=== PATIENT | female | born 1935 | race American Indian/Alaskan Native ===

== ENCOUNTER 2016-11-17 18:48 | Inpatient (IN) | payer MEDICARE ==
[2016-11-17 19:04] LABS: Basophils % (Auto) 0.9 % (0.0-1.8); Eosinophils % (Auto) 1.3 % (0.0-4.3); Hematocrit 36.8 % (30.3-42.9); Hemoglobin 11.9 gm/dl (10.1-14.3); Mean Corpuscular HGB Conc 32 % (30-34); Mean Corpuscular Hemoglobin 27 pg (28-32); Mean Corpuscular Volume 84 fl (79-97); Platelet Count 282 K/mm3 (140-440); Red Blood Count 4.37 M/mm3 (3.65-5.03); White Blood Count 6.6 K/mm3 (4.5-11.0)
[2016-11-17 19:10] LABS: INR 1.03 (0.87-1.13)
[2016-11-17] MEDS ORDERED: ZOFRAN IV ONE (19:10)
[2016-11-17 19:11] LABS: Partial Thromboplastin Time 25.9 Sec. (24.2-36.6)
[2016-11-17 19:14] LABS: Anion Gap 18 mmol/L; Blood Urea Nitrogen 12 mg/dL (7-17); Calcium 9.7 mg/dL (8.4-10.2); Carbon Dioxide 24 mmol/L (22-30); Chloride 101.3 mmol/L (98-107); Glucose 134 mg/dL (65-100); Potassium 3.7 mmol/L (3.6-5.0); Sodium 140 mmol/L (137-145)
[2016-11-17] MEDS ORDERED: ZOFRAN ONE (19:19)
--- NOTE | 2016-11-17 19:19 | Cat Scan Report ---
FINAL REPORT EXAM: CT HEAD/BRAIN WO CON HISTORY: neuro deficits \T\lt; 6hrs or sx present upon awakening TECHNIQUE: Noncontrast CT axial images of the brain. PRIORS: None. FINDINGS: No parenchymal mass, hemorrhage, midline shift or hydrocephalus. No evidence of acute cortical infarct. No abnormal, extra-axial fluid or air collection. Patchy low density in the periventricular and subcortical white matter is nonspecific, but may relate to chronic small vessel ischemic change. Focal encephalomalacia in the left inferior parieto-occipital region suggesting old ischemic change or infarct. Age related volume loss. Osseous calvarium grossly intact. Partial opacification of bilateral mastoid air complexes. IMPRESSION: 1. No acute intracranial findings. 2. Chronic ischemic and atrophic changes.
[2016-11-17] MEDS ORDERED: NACL 0.9% IV ONE (19:33)
[2016-11-17] MEDS ORDERED: ACTIVASE IV ONE ×2 (19:33)
--- NOTE | 2016-11-17 20:08 | Admit Criteria Form ---
Admission Criteria Documentation: STROKE: ISCHEMIC Clinical Indications for Admission to Inpatient Care (Place 'X' for any and all applicable criteria): Admission is indicated for ANY ONE of the following(1)(2)(3)(4): [X ]I. Acute stroke Extended stay beyond goal length of stay may be needed for(1)(2) [ ]a) Major deficit or clinical deterioration [ ]b) Hospital-acquired infection (eg, urinary tract infection, pneumonia) [ ]c) Embolic cause of stroke [ ]d) Venous thromboembolism(9) [ ]e) Seizures [ ]f) Bleeding (eg, cerebral) [ ]g) Increased intracranial pressure [ ]h) Comorbidities [ ]i) Surgical intervention The original [facility] content created by [employer] has been revised. The portions of the content which have been revised are identified through the use of italic text or in bold, and [facility] has neither reviewed nor approved the modified material. All other unmodified content is copyright [facility]. Please see references footnoted in the original [facility] edition 2016 Admission Criteria Met: Yes
--- NOTE | 2016-11-17 20:08 | Emergency Department Report ---
HPI - General Chief Complaint: Neuro Symptoms/Deficit Time Seen by Provider: 11/17/16 18:50 - HPI HPI: The patient is a 81-year-old female who presents for evaluation of strokelike symptoms. The patient arrives with her son who provides history present illness. He reports that at 6 PM approximately 30-45 minutes prior to arrival the patient developed sudden onset of right-sided weakness and loss of speech. He states that she was eating or taking when she suddenly became agitated and exhibited coordination deficit on the right side. She subsequently lost the ability to ambulate and her speech became incomprehensible. Per EMS on arrival to scene the patient was found to have complete loss of speech, or facial drooping, and right upper and lower extremity weakness. ED Review of Systems ROS: Stated complaint: POSS STROKE Other details as noted in HPI Comment: Unobtainable due to pts medical conditions (non-communicable) Physical Exam - Physical Exam Physical Exam: General: well-nourished, well-developed, no acute distress Head: Normocephalic, atraumatic Eyes: normal sclera, EOMI, PERRL ENT: Mucous membranes are pink and moist Neck: trachea midline, neck supple, No neck stiffness, no cervical adenopathy Respiratory: Breath sounds equal bilaterally, no wheezing, rales, or rhonchi Cardio: S1 and S2 present, no murmurs, rubs, gallops, capillary refill is brisk Abdomen: Normoactive bowel sounds, soft abdomen, no rigidity, no guarding or rebound tenderness Musc: No pitting edema Skin: No rash Neuro: Alert, unable to follow commands, right-sided facial drooping present, gag reflex intact, protecting airway, right upper and lower extremity motor deficit present, no appreciable sensation deficit, reflexes are 2+, unable to assess coordination Psych: Normal affect ED Course - Reevaluation(s) Reevaluation #1: 11/17/161947 The on-call neurologist Dr. Dawn is consulted. He evaluated the patient via telerobot. He agreed with recommendation to provide the patient TPA. The patient's daughter and grandson were consented regarding the benefits and risks of TPA. Expressed understanding and agreement with proceeding with administration. The patient was administered TPA within 60 minute window. ED Medical Decision Making - Lab Data Result diagrams: 11/17/16 17:00 11/17/16 17:00 - Medical Decision Making The patient was seen and examined by myself. The patient is placed on a staple shear operator and continuous pulse ox. On initial evaluation, the patient was found to be in no distress. Evaluation orders were placed. CT scan the head is negative for hemorrhagic stroke or other emergent acute intracranial disease process. The on-call neurologist consult. He evaluated the patient recommended TPA administration. The patient is side and mother were consulted regarding benefits and risks of TPA administration. They agreed. The patient is administered TPA bolus and infusion. During ED course the patient developed agitation. Multiple bedside assessments were performed to reassess patient neurologic status and potential complications secondary to TPA administration. CT angiogram of the head and neck is negative for vascular blockage. The on-call hospitalist service was contacted. They agreed to admit the patient for further treatment and close monitoring. The ED admit order was placed. The patient was admitted in guarded condition. Critical Care Time: Yes Critical care time in (mins) excluding proc time.: 35 Critical care attestation.: Due to the critical nature of this patients presentation, which necessitated multiple bedside assessments, manipulation and supportive measures to prevent further life threatening deterioration, I would like to bill for a total of 35 minutes of critical care time. This was exclusive of any separately billable procedures. Critical Care Time: 35 ED Disposition Clinical Impression: Acute ischemic stroke, Expressive aphasia Disposition: OP ADMITTED IP TO THIS HOSP Is pt being admited?: Yes Does the pt Need Aspirin: Yes Condition: Critical Referrals: PRIMARY CARE, [Primary Care Provider] - 3-5 Days Forms: Accompanied Note Time of Disposition: 20:02
[2016-11-17] MEDS ORDERED: NACL ONE (20:30)
[2016-11-17] MEDS ORDERED: ATIVAN IV ONE (21:10)
[2016-11-17] MEDS ORDERED: ATIVAN ONE (21:15)
--- NOTE | 2016-11-17 23:19 | Cat Scan Report ---
FINAL REPORT PROCEDURE: CT ANGIO NECK TECHNIQUE: Computerized tomographic angiography of the neck was performed after the IV injection of iodinated nonionic contrast including image processing. The image data was postprocessed using 2-dimensional multiplanar reformatted (MPR) and 3-dimensional (MIP and/or volume rendered) techniques. HISTORY: right sided weakness, expressive aphasia COMPARISON: No prior studies are available for comparison. Note: Assessment of carotid artery stenosis is based on measurement of the distal internal carotid artery diameter as the denominator for stenosis calculations and the [place] Symptomatic Carotid Endarterectomy Trial (NASCET) stenosis criteria . CPT 3100F FINDINGS: Sinuses: Normal . Non vascular cervical structures: There is a nodular density most likely a cyst within the right thyroid gland.. Aortic arch: There is tortuosity of the origin of the right innominate and right carotid artery with tortuosity of the vasculature in the anterior neck region. A portion of the right carotid artery traverses anterior to the right thyroid gland area. Right carotid artery: No evident plaque formation or stenosis.. Left carotid artery: No evident plaque formation or stenosis.. Vertebral arteries: Normal . IMPRESSION: No evidence of significant stenosis or plaque formation within the carotid arterial structures.
--- NOTE | 2016-11-17 23:21 | History and Physical Report ---
History of Present Illness Date of examination: 11/17/16 Date of admission: 10/20/16 Chief complaint: Right sided weakness History of present illness: 81-year-old -[place] female with past medical history significant for dementia was brought to the emergency department by EMS after the patient became agitated, disoriented, right-sided weakness, drooling of saliva. Her grandson was in the room with her and said no loss of consciousness or abnormal body movement. She was attended immediately to the ED and CT head was done and didn't show any acute intracranial bleeding and she was treated with TPA and admitted to the ICU for follow-up. Past History Past Medical History: other (dementia with agitation) Past Surgical History: No surgical history Social history: lives with family, full code. denies: smoking, alcohol abuse, prescription drug abuse, IV drug use Family history: denies: stroke Medications and Allergies Allergies Allergy/AdvReac Type Severity Reaction Status Date / Time No Known Allergies Allergy Unverified 11/17/16 18:54 Home Medications Medication Instructions Recorded Confirmed Last Taken Type Memantine HCl 10 mg PO BID 11/18/16 11/18/16 Unknown History risperiDONE [RisperDAL] 0.25 mg PO BID 11/18/16 11/18/16 Unknown History Review of Systems ROS unobtainable: due to mental status (didn't get much review of systems because the patient has dementia) Ears, nose, mouth and throat: no ear discharge Cardiovascular: no chest pain, no orthopnea, no palpitations Respiratory: cough Gastrointestinal: no abdominal pain Neurological: no head injury, no seizures Psychiatric: memory loss, no anxiety Exam - Physical Exam Narrative exam: Not in cardiopulmonary distress. The patient appeared well nourished and normally developed. Vital signs as documented. Head exam is unremarkable. No scleral icterus . Neck is without jugular venous distension, thyromegaly, or carotid bruits. Lungs are clear to auscultation. Cardiac exam reveals regular rate and Rhythm. First and second heart sounds normal. No murmurs, rubs or gallops. Abdominal exam reveals normal bowel sounds, no masses, no organomegaly and no aortic enlargement. Extremities are nonedematous and both femoral and pedal pulses are normal. PHOTO RETOUCHER: Alert but not oriented. Right-sided hemiparesis. - Constitutional Vitals: Temp Pulse Resp BP Pulse Ox 66 13 135/78 100 11/17/16 23:10 11/17/16 23:10 11/17/16 23:10 11/17/16 23:10 Results - Labs CBC & Chem 7: 11/17/16 17:00 11/17/16 17:00 Labs: Laboratory Last Values WBC 6.6 K/mm3 (4.5-11.0) 11/17/16 17:00 RBC 4.37 M/mm3 (3.65-5.03) 11/17/16 17:00 Hgb 11.9 gm/dl (10.1-14.3) 11/17/16 17:00 Hct 36.8 % (30.3-42.9) 11/17/16 17:00 MCV 84 fl (79-97) 11/17/16 17:00 MCH 27 pg (28-32) L 11/17/16 17:00 MCHC 32 % (30-34) 11/17/16 17:00 RDW 14.0 % (13.2-15.2) 11/17/16 17:00 Plt Count 282 K/mm3 (140-440) 11/17/16 17:00 Lymph % (Auto) 42.9 % (13.4-35.0) H 11/17/16 17:00 [place] % (Auto) 8.4 % (0.0-7.3) H 11/17/16 17:00 Eos % (Auto) 1.3 % (0.0-4.3) 11/17/16 17:00 Baso % (Auto) 0.9 % (0.0-1.8) 11/17/16 17:00 Lymph # 2.8 K/mm3 (1.2-5.4) 11/17/16 17:00 [place] # 0.6 K/mm3 (0.0-0.8) 11/17/16 17:00 Eos # 0.1 K/mm3 (0.0-0.4) 11/17/16 17:00 Baso # 0.1 K/mm3 (0.0-0.1) 11/17/16 17:00 Seg Neutrophils % 46.5 % (40.0-70.0) 11/17/16 17:00 Seg Neutrophils # 3.1 K/mm3 (1.8-7.7) 11/17/16 17:00 PT 13.4 Sec. (12.2-14.9) 11/17/16 17:00 INR 1.03 (0.87-1.13) 11/17/16 17:00 APTT 25.9 Sec. (24.2-36.6) 11/17/16 17:00 Thrombin Time 15.9 Sec. (15.1-19.6) 11/17/16 17:00 Sodium 140 mmol/L (137-145) 11/17/16 17:00 Potassium 3.7 mmol/L (3.6-5.0) 11/17/16 17:00 Chloride 101.3 mmol/L (98-107) 11/17/16 17:00 Carbon Dioxide 24 mmol/L (22-30) 11/17/16 17:00 Anion Gap 18 mmol/L 11/17/16 17:00 BUN 12 mg/dL (7-17) 11/17/16 17:00 Creatinine 0.6 mg/dL (0.7-1.2) L 11/17/16 17:00 Estimated GFR > 60 ml/min 11/17/16 17:00 BUN/Creatinine Ratio 20.00 % 11/17/16 17:00 Glucose 134 mg/dL (65-100) H 11/17/16 17:00 Lactic Acid 1.4 mmol/L (0.7-2.0) 11/17/16 19:43 Calcium 9.7 mg/dL (8.4-10.2) 11/17/16 17:00 Troponin T < 0.010 ng/mL (0.00-0.029) 11/17/16 17:00 Plasma/Serum Alcohol < 0.01 gm% (0-0.07) 11/17/16 18:50 Assessment and Plan Assessment and plan: Right-sided hemiparesis secondary to acute CVA - Patient was treated with TPA - teleneurology was consulted - Will consult neurology - We will hold ASA,and heparin products for the next 24 hrs - CT head negative for intracranial bleeding, CTA head and neck negative - Echo and MRI pending - NPO - Speech and swallow evaluation, PT consult Dementia - We will start her medications after swallow evaluations Disposition - Admit to ICU Advance Directives: Yes VTE prophylaxis?: Mechanical Contraindication Mechanical VTE Prophylaxis: Treatment Not Indicated Plan of care discussed with patient/family: Yes
--- NOTE | 2016-11-17 23:25 | Cat Scan Report ---
FINAL REPORT PROCEDURE: CT ANGIO HEAD TECHNIQUE: Computerized tomographic angiography of the head was performed after the IV injection of iodinated nonionic contrast including image processing. The image data was postprocessed using 2-dimensional multiplanar reformatted (MPR) and 3-dimensional (MIP and/or volume rendered) techniques. HISTORY: right sided weakness, expressive aphasia COMPARISON: Head CT of the same date FINDINGS: Cerebrum: No evidence of hemorrhage, acute ischemia or mass. Cerebellum: No evidence of hemorrhage, acute ischemia or mass. Mild atrophy and periventricular deep white matter changes are noted. Old area encephalomalacia in the left posterior occipital parietal lobe. Subarachnoid spaces and ventricles: Normal. Intracranial vessels: Carotid siphon: Normal. Anterior cerebral: Normal. Middle cerebral: Normal. Posterior cerebral:Normal. Vertebral arteries including basilar: Normal. Aneurysms: None. Dural sinuses: Normal. IMPRESSION: Normal evaluation of the vasculature. Mild atrophy and periventricular deep white matter changes are noted. Old area encephalomalacia in the left posterior occipital parietal lobe region, old infarction in this area is suspected.
[2016-11-18] MEDS ORDERED: NACL 0.9% 1000 ML 1,000 ML IV SCH (02:00)
--- NOTE | 2016-11-18 09:44 | Progress Note ---
Assessment and Plan Assessment and plan: 81-year-old -[place] female with past medical history significant for dementia was brought to the emergency department by EMS after the patient became agitated, disoriented, right-sided weakness, drooling of saliva. In the ER CT head was done and didn't show any acute intracranial bleeding and she was treated with TPA and admitted with stroke protocol. Right-sided hemiparesis secondary to acute CVA - Patient was treated with TPA - tele neurology was consulted on admission - We'll follow neurology recommendation - We will hold ASA,and heparin products for the 24 hrs post TPA - CT head negative for intracranial bleeding, CTA head and neck negative - Echo and MRI pending - NPO now - Speech and swallow evaluation, PT consult Dementia - We will start her medications after swallow evaluations GI and DVT prophylaxis -Continue on Protonix and SCD - Lovenox from tomorrow History Interval history: Patient seen and examined. Medical records and medication list reviewed. No acute event overnight noted by the RN. Patient appears to be sleepy. Discussed plan of care at bedside with patient's daughter. Hospitalist Physical - Physical exam Narrative exam: GENERAL: Elderly female lying on bed appeared to be in no discomfort. She appears to be very drowsy but will awake up verbal commend. HEENT: Normocephalic. Atraumatic. No conjunctival congestion or icterus. Patient has moist mucous membranes. NECK: Supple. Trachea midline. CHEST/LUNGS: Clear to auscultated bilaterally, breathing nonlabored. No wheezes crackles or rhonchi. HEART/CARDIOVASCULAR: Regular in rate and rhythm. S1 and S2 positive. ABDOMEN: Abdomen is soft, nontender. Patient has normal bowel sounds. SKIN: There is no rash. Warm and dry. NEURO: Right-sided weakness. Follows minor command. MUSCULOSKELETAL: No joint effusion or tenderness. EXTRIMITY: No edema, no cyanosis or clubbing. PSYCH: Unable to assess. - Constitutional Vitals: Temp Pulse Resp BP Pulse Ox 97.5 F L 60 14 92/64 97 11/18/16 09:28 11/18/16 08:00 11/18/16 08:00 11/18/16 08:00 11/18/16 08:00 Results - Labs CBC & Chem 7: 11/17/16 17:00 11/17/16 17:00 Labs: Laboratory Last Values WBC 6.6 K/mm3 (4.5-11.0) 11/17/16 17:00 RBC 4.37 M/mm3 (3.65-5.03) 11/17/16 17:00 Hgb 11.9 gm/dl (10.1-14.3) 11/17/16 17:00 Hct 36.8 % (30.3-42.9) 11/17/16 17:00 MCV 84 fl (79-97) 11/17/16 17:00 MCH 27 pg (28-32) L 11/17/16 17:00 MCHC 32 % (30-34) 11/17/16 17:00 RDW 14.0 % (13.2-15.2) 11/17/16:00 Plt Count 282 K/mm3 (140-440) 11/17/16 17:00 Lymph % (Auto) 42.9 % (13.4-35.0) H 11/17/16 17:00 [place] % (Auto) 8.4 % (0.0-7.3) H 11/17/16 17:00 Eos % (Auto) 1.3 % (0.0-4.3) 11/17/16 17:00 Baso % (Auto) 0.9 % (0.0-1.8) 11/17/16 17:00 Lymph # 2.8 K/mm3 (1.2-5.4) 11/17/16 17:00 [place] # 0.6 K/mm3 (0.0-0.8) 11/17/16 17:00 Eos # 0.1 K/mm3 (0.0-0.4) 11/17/16 17:00 Baso # 0.1 K/mm3 (0.0-0.1) 11/17/16 17:00 Seg Neutrophils % 46.5 % (40.0-70.0) 11/17/16 17:00 Seg Neutrophils # 3.1 K/mm3 (1.8-7.7) 11/17/16 17:00 PT 13.4 Sec. (12.2-14.9) 11/17/16 17:00 INR 1.03 (0.87-1.13) 11/17/16 17:00 APTT 25.9 Sec. (24.2-36.6) 11/17/16 17:00 Thrombin Time 15.9 Sec. (15.1-19.6) 11/17/16 17:00 Sodium 140 mmol/L (137-145) 11/17/16 17:00 Potassium 3.7 mmol/L (3.6-5.0) 11/17/16 17:00 Chloride 101.3 mmol/L (98-107) 11/17/16 17:00 Carbon Dioxide 24 mmol/L (22-30) 11/17/16 17:00 Anion Gap 18 mmol/L 11/17/16 17:00 BUN 12 mg/dL (7-17) 11/17/16 17:00 Creatinine 0.6 mg/dL (0.7-1.2) L 11/17/16 17:00 Estimated GFR > 60 ml/min 11/17/16 17:00 BUN/Creatinine Ratio 20.00 % 11/17/16 17:00 Glucose 134 mg/dL (65-100) H 11/17/16 17:00 Lactic Acid 1.4 mmol/L (0.7-2.0) 11/17/16 19:43 Calcium 9.7 mg/dL (8.4-10.2) 11/17/16 17:00 Troponin T < 0.010 ng/mL (0.00-0.029) 11/17/16 17:00 Plasma/Serum Alcohol < 0.01 gm% (0-0.07) 11/17/16 18:50 - Imaging and Cardiology CT Scan - head: report reviewed
--- NOTE | 2016-11-18 10:32 | Consultation ---
History of Present Illness Consult date: 11/18/16 Requesting physician: MO FOREMAN Reason for consult: other (Acute CVA s/p tpA) History of present illness: PULMONARY/CCM CONSULT NOTE (Full dictation # [id number]) Please see dictated notes for full details Past History Past Medical History: other (dementia with agitation) Past Surgical History: No surgical history Social history: lives with family, full code. denies: smoking, alcohol abuse, prescription drug abuse, IV drug use Family history: denies: stroke Medications and Allergies Allergies Allergy/AdvReac Type Severity Reaction Status Date / Time No Known Allergies Allergy Unverified 11/17/16 18:54 Home Medications Medication Instructions Recorded Confirmed Last Taken Type Memantine HCl 10 mg PO BID 11/18/16 11/18/16 Unknown History risperiDONE [RisperDAL] 0.25 mg PO BID 11/18/16 11/18/16 Unknown History Active Meds: Active Medications Sodium Chloride (Nacl 0.9% 1000 Ml) 1,000 mls @ 100 mls/hr IV DIRECT DONAVON Physical Examination Vital signs: Vital Signs Pulse Resp Pulse Ox 74 12 97 11/17/16 19:12 11/17/16 19:12 11/17/16 19:12 Results - Laboratory Findings CBC and BMP: 11/17/16 17:00 11/17/16 17:00 PT/INR, D-dimer PT 13.4 Sec. (12.2-14.9) 11/17/16 17:00 INR 1.03 (0.87-1.13) 11/17/16 17:00
--- NOTE | 2016-11-18 13:43 | Progress Note ---
Assessment and Plan This is an 81 YO F with acute RHP. REcommend: MRI Brain, MRA head PT/OT/ST echo and carotids Follow up CT head in 24 hours post IV tPA Blood pressure and blood glucose control as per protocol mechanical VTE prophylaxis for 24 hours post IV tPA STAT head CT for mental status changes/increased weakness Continue care for her medical issues as you are doing Thank you for the consult. Call with questions. Subjective Date of service: 11/18/16 Principal diagnosis: acute stroke Interval history: Pt seen, notes reviewed. Pt brought in as stroke alert for acute RHP. On my arrival pt is sleeping but easily aroused. Demented at baseline. Moves all extremities with noxious stimulation but moves right UE more spontaneously(has mitten). Not moving right leg much. Moves Left UE and LE with noxious stimulation very vigourously. Objective - Vital Sign Vital Signs - 12hr 11/18/16 11/18/16 11/18/16 01:41 01:51 02:00 Temperature Pulse Rate 55 L 56 L 55 L Pulse Rate [ Left Arm] Respiratory 12 14 9 L Rate Respiratory Rate [Left Arm] Blood Pressure 101/65 123/71 121/63 Blood Pressure [Left Arm] O2 Sat by Pulse 91 96 100 Oximetry O2 Sat by Pulse Oximetry [Left Arm] 11/18/16 11/18/16 11/18/16 02:11 02:21 02:30 Temperature Pulse Rate 56 L 55 L 57 L Pulse Rate [ Left Arm] Respiratory 14 11 L 9 L Rate Respiratory Rate [Left Arm] Blood Pressure 121/63 139/71 109/63 Blood Pressure [Left Arm] O2 Sat by Pulse 91 99 99 Oximetry O2 Sat by Pulse Oximetry [Left Arm] 11/18/16 11/18/16 11/18/16 02:41 02:51 03:00 Temperature Pulse Rate 66 60 Pulse Rate [ Left Arm] Respiratory 14 14 11 L Rate Respiratory Rate [Left Arm] Blood Pressure 109/63 138/75 139/67 Blood Pressure [Left Arm] O2 Sat by Pulse 96 97 100 Oximetry O2 Sat by Pulse Oximetry [Left Arm] 11/18/16 11/18/16 11/18/16 03:11 03:21 03:31 Temperature Pulse Rate Pulse Rate [ Left Arm] Respiratory 16 14 14 Rate Respiratory Rate [Left Arm] Blood Pressure 139/67 132/58 111/57 Blood Pressure [Left Arm] O2 Sat by Pulse 95 96 96 Oximetry O2 Sat by Pulse Oximetry [Left Arm] 11/18/16 11/18/16 11/18/16 03:41 03:51 04:00 Temperature Pulse Rate 54 L Pulse Rate [ Left Arm] Respiratory 13 13 14 Rate Respiratory Rate [Left Arm] Blood Pressure 111/57 119/75 106/57 Blood Pressure [Left Arm] O2 Sat by Pulse 98 99 95 Oximetry O2 Sat by Pulse Oximetry [Left Arm] 11/18/16 11/18/16 11/18/16 04:11 04:21 04:30 Temperature Pulse Rate 61 54 L 52 L Pulse Rate [ Left Arm] Respiratory 13 15 14 Rate Respiratory Rate [Left Arm] Blood Pressure 106/57 106/58 93/55 Blood Pressure [Left Arm] O2 Sat by Pulse 92 96 96 Oximetry O2 Sat by Pulse Oximetry [Left Arm] 11/18/16 11/18/16 11/18/16 04:41 04:51 05:00 Temperature Pulse Rate 51 L 63 53 L Pulse Rate [ Left Arm] Respiratory 12 12 14 Rate Respiratory Rate [Left Arm] Blood Pressure 124/67 124/67 112/57 Blood Pressure [Left Arm] O2 Sat by Pulse 98 86 62 L Oximetry O2 Sat by Pulse Oximetry [Left Arm] 11/18/16 11/18/16 11/18/16 05:11 05:21 05:30 Temperature Pulse Rate 52 L 50 L 54 L Pulse Rate [ Left Arm] Respiratory 13 14 13 Rate Respiratory Rate [Left Arm] Blood Pressure 112/57 112/57 95/62 Blood Pressure [Left Arm] O2 Sat by Pulse 96 95 97 Oximetry O2 Sat by Pulse Oximetry [Left Arm] 11/18/16 11/18/16 11/18/16 05:41 05:51 06:01 Temperature Pulse Rate 57 L 51 L 51 L Pulse Rate [ Left Arm] Respiratory 13 13 13 Rate Respiratory Rate [Left Arm] Blood Pressure 95/62 95/62 108/67 Blood Pressure [Left Arm] O2 Sat by Pulse 97 93 89 Oximetry O2 Sat by Pulse Oximetry [Left Arm] 11/18/16 11/18/16 11/18/16 06:11 06:21 06:30 Temperature Pulse Rate 50 L 50 L 69 Pulse Rate [ Left Arm] Respiratory 14 11 L 14 Rate Respiratory Rate [Left Arm] Blood Pressure 108/67 108/67 111/81 Blood Pressure [Left Arm] O2 Sat by Pulse 97 99 84 Oximetry O2 Sat by Pulse Oximetry [Left Arm] 11/18/16 11/18/16 11/18/16 06:41 06:51 07:00 Temperature Pulse Rate 51 L 54 L 52 L Pulse Rate [ 60 Left Arm] Respiratory 12 13 11 L Rate Respiratory 14 Rate [Left Arm] Blood Pressure 111/81 111/81 107/74 Blood Pressure 107/74 [Left Arm] O2 Sat by Pulse 99 96 99 Oximetry O2 Sat by Pulse 98 Oximetry [Left Arm] 11/18/16 11/18/16 11/18/16 08:00 09:28 12:00 Temperature 97.5 F L 97.4 F L Pulse Rate Pulse Rate [ 60 Left Arm] Respiratory Rate Respiratory 14 Rate [Left Arm] Blood Pressure Blood Pressure 92/64 [Left Arm] O2 Sat by Pulse Oximetry O2 Sat by Pulse 97 Oximetry [Left Arm] - EENT EENT: PERRL - Respiratory Respiratory: chest non-tender, lungs clear - Cardiovascular Cardiovascular: regular rate - Neurologic Cranial nerve examination: PERRL, EOMI, V1/V2/V3 grossly intact, tongue midline Detailed motor examination: other (left side appears at baseline. Will move RUE. Not much movement RLE.) Detailed sensory examination: light touch, pain - Laboratory Findings CBC and BMP: 11/17/16 17:00 11/17/16 17:00 - Diagnostic Findings Additional findings: CT head no hemorrhage MRI Brain and follow CT head (24 hrs post IV TPA) pending
[2016-11-18 14:26] LABS: Hematocrit 37.6 % (30.3-42.9)
[2016-11-18 14:32] LABS: INR 1.09 (0.87-1.13)
[2016-11-18 14:33] LABS: Partial Thromboplastin Time 28.5 Sec. (24.2-36.6)
[2016-11-18] MEDS: NAMENDA XR PO SCH (21:30)
[2016-11-18] MEDS: ASPIRIN PO SCH (21:31)
[2016-11-18] MEDS: PEPCID IV SCH (21:31)
[2016-11-18] MEDS: RisperDAL PO SCH (21:32)
[2016-11-18] MEDS ORDERED: MEMANTINE HCL 10 MG PO SCH (22:00)
--- NOTE | 2016-11-18 23:03 | Cat Scan Report ---
FINAL REPORT PROCEDURE: CT HEAD/BRAIN WO CON TECHNIQUE: Computerized tomography of the head was performed without contrast material. HISTORY: post IV tPA 24 hr follow up COMPARISON: 11/17/2016 FINDINGS: Skull and scalp: Normal. Paranasal sinuses: Normal. Ventricles and subarachnoid spaces: There is moderate central and cortical atrophy. There is no hydrocephalus or asymmetry.. Cerebrum: No evidence of hemorrhage, acute infarction or mass. 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 There is chronic deep white matter ischemic gliosis. Cerebellum and brainstem: No evidence of hemorrhage, acute infarction or mass. Vasculature: Normal. Comments: None. 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 No acute abnormality is seen. There is no hemorrhage.
--- NOTE | 2016-11-19 02:13 | Consultation ---
CONSULTING PHYSICIAN: Sergio Newberry MD, hospitalist. REASON FOR CONSULTATION: Acute CVA, status post TPA, need for ICU admission. CHIEF COMPLAINT AND HISTORY OF PRESENT ILLNESS: The patient is an 81-year-old female who apparently had a past medical history that included high blood pressure, lives at home, her daughter in the room, could not give much of the history. According to her son, who stays with her mother, brought her in, as mentioned in that about 30-45 minutes prior to her arrival, she developed sudden onset right-sided weakness and aphasia. She reportedly was sitting in the kitchen when she suddenly became agitated and he noticed the deficits on the right side. She was evaluated in the Emergency Room. She had some facial drooping and right upper and lower extremity weakness. She was administered TPA after consent had been given, and post-TPA, she was admitted to the Intensive Care Unit. A CT scan of the head had been done was negative for hemorrhagic stroke or any contraindication to administration of the product. When I stopped by to see her, she was lying in bed, still appeared to be a little bit confused or aphasic, was answering yes to all questions. Daughter in her room says she is a little bit more cognitively better at baseline. They denied nausea, vomiting, or overt aspiration. They denied any history of tobacco use or abuse or whatsoever, they denied any trauma. That really is as much of the history of presentation as I have. PAST MEDICAL HISTORY: Seems there is a history of hypertension and also history of dementia. PAST SURGICAL HISTORY: Denied. MEDICATIONS: She was on at the time I stopped by to see her, according to the medication administration record, actually she was not on any medication at the time. She was on oxygen about 2 liters per nasal cannula. ALLERGIES: No known drug allergies. DIET: Well-built lady on the petite side. No significant weight loss or gain in the preceding few weeks to months per family. FAMILY AND SOCIAL HISTORY: Lives in the community with her daughter. No alcohol, tobacco, or illicit drug use or abuse. REVIEW OF SYSTEMS: Unobtainable secondary to the patient's medical and mental condition since she has been here, no gross hematochezia or melena, no gross hematuria, no hematemesis, no hemoptysis, no witnessed seizures, and no other bleeding ____ review of systems otherwise unobtainable. PHYSICAL EXAMINATION: VITAL SIGNS: At initial presentation in the emergency room, she was afebrile, temperature 98.5, pulse was 74, respiratory rate was 12, blood pressure 148/69, oxygen sats 97%, inspired oxygen concentration was not recorded. HEAD, EYES, EARS, NOSE, AND THROAT: Pupils are equal, round, about 2-3 mm, reactive to light. Extraocular muscle movements could not be assessed. Grossly, there were no palpable lymph nodes in the supraclavicular or submandibular lymph node chains. Oropharynx appeared to be a Mallampati #2 oropharynx when she did open it. LUNGS: Auscultation of both lung thrasher unremarkable. Lungs were clear bilaterally. HEART: Heart sounds 1 and 2 were heard. There were regular rate and rhythm at the time of my evaluation. ABDOMEN: Soft. Bowel sounds are positive. Did not appear tender. EXTREMITIES: Without overt digital clubbing, cyanosis, or pedal edema. She moved all extremities when I saw her, it was difficult to get her to follow commands to better evaluate the strength. LABORATORY DATA: From my review are as follows: White count 6600 on admission with hemoglobin of 11.9, hematocrit of 36.8, and platelets of 282. INR 1.03. Serum sodium was 140, potassium 3.7, chloride 101, bicarbonate 24, BUN 12, creatinine 0.6, and glucose of 134. Lactic acid level was within normal limits. Troponin within normal limits. Blood alcohol level within normal limits. ASSESSMENT AND PLAN: We have an elderly lady, status post TPA protocol for stroke. I should mention that CT of the brain showed no acute intracranial findings, some chronic atrophic changes. She had a CTA of the neck and of the head. CTA of the neck, no significant stenosis or plaque formation. CT of the head, no acute findings, normal evaluation of the vasculature. From a respiratory standpoint, we will keep her on supplemental oxygen as needed, keep sats greater than or equal to about 90-92%. Aspiration precautions will be maintained and hopefully, she does not decompensate to where she needs support, but if that is needed acutely bilevel positive airway pressure ventilation therapy will be offered for ventilatory support and oxygenation. From a cardiovascular standpoint, hemodynamically stable. Secondary stroke prevention strategies, blood pressure control, aspirin will soon be instituted, and we will follow her clinically. No obvious arrhythmia. From a GI and nutritional standpoint, oral nutrition will be the feeding modality of choice. She will need a swallow evaluation prior to that, she will be placed on GI prophylaxis and aspiration precautions will be maintained. From a renal standpoint, no major electrolyte abnormalities. Inputs and outputs will be monitored. Electrolytes will be monitored and corrected as necessary. From infectious disease standpoint, no signs and symptoms of overwhelming sepsis, no acute indication for anti-infectives. We will follow her clinically. From a BUNDLE PERSON standpoint, Neurology evaluation is pending. She will be observed with TPA protocol for now. As mentioned secondary stroke prevention procedures will be put in place and I will defer to the neurologist for further interventions. From a hematologic standpoint, she will be placed on DVT prophylaxis and we will follow her H and H intermittently. From a general and hospital healthcare maintenance standpoint, she is going to be put on GI and DVT prophylaxis. Flu and pneumonia vaccination will be per protocol. Thank you very much for the consult Dr. Newberry. We will follow along. We will make further recommendations as picture progresses/becomes clearer. At this time, I spent about 30-35 minutes of critical care time without overlap. I have taken the time to explain the care plan to her daughter and she is in agreement. She is critically ill. Hopefully, does not deteriorate further and will be observed in the Intensive Care Unit for now. JOB# [id number] JENNIFER/JIM
[2016-11-19] MEDS: PEPCID IV SCH (09:53)
[2016-11-19] MEDS: ASPIRIN PO SCH (09:53)
[2016-11-19] MEDS: LOVENOX SUB-Q SCH (09:54)
[2016-11-19] MEDS: RisperDAL PO SCH ×2 (09:54→22:35)
--- NOTE | 2016-11-19 11:32 | Progress Note ---
Assessment and Plan - Patient Problems (1) Hypoxemia Current Visit: Yes Status: Acute Plan to address problem: - resolved - prn oxygen therapy (2) Acute ischemic stroke Current Visit: Yes Status: Acute Plan to address problem: - secondary prevention startegies - seen by neurology - fall precautions - BP control - aspiration precautions (3) Expressive aphasia Current Visit: Yes Status: Acute Plan to address problem: - per neurology (4) Discharge planning issues Current Visit: Yes Status: Acute Plan to address problem: - can transfer to medical floor - ST evaluation before starting diet Subjective Date of service: 11/19/16 Principal diagnosis: acute stroke Interval history: Seen and examined at bedside; 24 hour events reviewed; nursing and respiratory care staff consulted; no adverse overnight events reported to me; resting peacefully in bed; no acute SOB; still very confused and unclear if at baseline or worse Objective Vital Signs - 12hr 11/18/16 11/18/16 11/18/16 23:35 23:41 23:51 Temperature Pulse Rate 58 L 51 L Pulse Rate [ From Monitor] Pulse Rate [ Left Radial] Respiratory 11 L 13 13 Rate Blood Pressure 128/73 128/73 128/73 O2 Sat by Pulse 99 100 99 Oximetry 11/19/16 11/19/16 11/19/16 00:00 00:01 00:11 Temperature 98.0 F Pulse Rate 52 L 62 Pulse Rate [ 60 From Monitor] Pulse Rate [ 60 Left Radial] Respiratory 14 12 12 Rate Blood Pressure 104/52 104/52 O2 Sat by Pulse 100 100 100 Oximetry 11/19/16 11/19/16 11/19/16 00:21 00:31 00:41 Temperature Pulse Rate 47 L 54 L 55 L Pulse Rate [ From Monitor] Pulse Rate [ Left Radial] Respiratory 15 10 L 11 L Rate Blood Pressure 104/52 104/52 104/52 O2 Sat by Pulse 97 98 100 Oximetry 11/19/16 11/19/16 11/19/16 00:51 01:01 01:11 Temperature Pulse Rate 53 L 50 L 58 L Pulse Rate [ From Monitor] Pulse Rate [ Left Radial] Respiratory 9 L 10 L 10 L Rate Blood Pressure 104/52 113/54 113/54 O2 Sat by Pulse 97 100 100 Oximetry 11/19/16 11/19/16 11/19/16 01:21 01:31 01:41 Temperature Pulse Rate 51 L 60 50 L Pulse Rate [ From Monitor] Pulse Rate [ Left Radial] Respiratory 10 L 13 12 Rate Blood Pressure 113/54 113/54 113/54 O2 Sat by Pulse 100 100 100 Oximetry 11/19/16 11/19/16 11/19/16 01:51 02:01 02:11 Temperature Pulse Rate 48 L 48 L 58 L Pulse Rate [ From Monitor] Pulse Rate [ Left Radial] Respiratory 13 11 L 10 L Rate Blood Pressure 113/54 118/53 118/53 O2 Sat by Pulse 100 100 100 Oximetry 11/19/16 11/19/16 11/19/16 02:21 02:31 02:41 Temperature Pulse Rate 55 L 52 L 62 Pulse Rate [ From Monitor] Pulse Rate [ Left Radial] Respiratory 12 11 L 11 L Rate Blood Pressure 118/53 118/53 118/53 O2 Sat by Pulse 100 100 94 Oximetry 11/19/16 11/19/16 11/19/16 02:51 03:01 03:11 Temperature Pulse Rate 60 60 Pulse Rate [ From Monitor] Pulse Rate [ Left Radial] Respiratory 11 L 18 15 Rate Blood Pressure 118/53 118/53 118/53 O2 Sat by Pulse 96 84 Oximetry 11/19/16 11/19/16 11/19/16 03:21 03:31 03:41 Temperature Pulse Rate 59 L 62 53 L Pulse Rate [ From Monitor] Pulse Rate [ Left Radial] Respiratory 12 14 10 L Rate Blood Pressure 118/53 118/53 118/53 O2 Sat by Pulse 97 97 93 Oximetry 11/19/16 11/19/16 11/19/16 03:51 04:00 04:11 Temperature 98.7 F Pulse Rate 54 L 60 52 L Pulse Rate [ 56 L From Monitor] Pulse Rate [ Left Radial] Respiratory 14 11 L 9 L Rate Blood Pressure 118/53 131/79 131/79 O2 Sat by Pulse 99 100 90 Oximetry 11/19/16 11/19/16 11/19/16 04:21 04:31 04:41 Temperature Pulse Rate 52 L 59 L 69 Pulse Rate [ From Monitor] Pulse Rate [ Left Radial] Respiratory 11 L 12 12 Rate Blood Pressure 131/79 125/59 125/59 O2 Sat by Pulse 100 96 Oximetry 11/19/16 11/19/16 11/19/16 04:51 05:00 05:11 Temperature Pulse Rate 61 62 65 Pulse Rate [ From Monitor] Pulse Rate [ Left Radial] Respiratory 12 12 11 L Rate Blood Pressure 125/59 144/57 125/59 O2 Sat by Pulse 100 100 Oximetry 11/19/16 11/19/16 11/19/16 05:21 05:31 05:41 Temperature Pulse Rate 69 59 L 63 Pulse Rate [ From Monitor] Pulse Rate [ Left Radial] Respiratory 13 11 L 12 Rate Blood Pressure 125/59 125/59 125/59 O2 Sat by Pulse 91 98 100 Oximetry 11/19/16 11/19/16 11/19/16 05:51 06:01 06:11 Temperature Pulse Rate 53 L 50 L 53 L Pulse Rate [ From Monitor] Pulse Rate [ Left Radial] Respiratory 13 12 14 Rate Blood Pressure 125/59 113/61 113/61 O2 Sat by Pulse 100 100 100 Oximetry 11/19/16 11/19/16 11/19/16 06:21 06:31 08:00 Temperature 97.9 F Pulse Rate 59 L 49 L Pulse Rate [ From Monitor] Pulse Rate [ Left Radial] Respiratory 10 L 12 Rate Blood Pressure 113/61 113/61 O2 Sat by Pulse 96 99 Oximetry 11/19/16 08:43 Temperature Pulse Rate Pulse Rate [ From Monitor] Pulse Rate [ Left Radial] Respiratory Rate Blood Pressure O2 Sat by Pulse 96 Oximetry Constitutional: no acute distress, alert Eyes: non-icteric ENT: oropharynx moist Neck: supple, no lymphadenopathy Effort: mildly labored Ascultation: Bilateral: clear, diminished breath sounds Cardiovascular: regular rate and rhythm Gastrointestinal: normoactive bowel sounds, soft, non-tender, non-distended Integumentary: normal Extremities: no cyanosis, no edema, pulses normal, no ischemia or petechiae Neurologic: unable to assess, other (right sided joshua-paresis) Psychiatric: other (dementia) CBC and BMP: 11/22/16 04:20 11/17/16 17:00 ABG, PT/INR, D-dimer: PT/INR, D-dimer PT 14.0 Sec. (12.2-14.9) 11/18/16 13:46 INR 1.09 (0.87-1.13) 11/18/16 13:46
--- NOTE | 2016-11-19 11:54 | Progress Note ---
Assessment and Plan Assessment and plan: 81-year-old -[place] female with past medical history significant for dementia was brought to the emergency department by EMS after the patient became agitated, disoriented, right-sided weakness, drooling of saliva. In the ER CT head was done and didn't show any acute intracranial bleeding and she was treated with TPA and admitted with stroke protocol. Right-sided hemiparesis secondary to acute CVA - Patient was treated with TPA in the ER - neurology followingon - Was on hold for ASA,and heparin products for the 24 hrs post TPA - CT head negative for intracranial bleeding, CTA head and neck negative - repeat CT showed old CVA, restarted on Asp and statin - Echo and MRI pending - PT eval pending - passed swallow study, place on pureed diet, stop fluid Dementia - We will start her home medications - d/c restrain, prn haldol for agitation GI and DVT prophylaxis -Continue on Protonix and SCD - Lovenox from today Will transfer her to tele floor today. History Interval history: Patient seen and examined. Medical records and medication list reviewed. No acute event overnight noted by the RN. Patient appears more alert today. Had Ct head last night, showed old CVA on the left parietal lobe. Placed on restrain last night Discussed plan of care at bedside with patient's daughter. Hospitalist Physical - Physical exam Narrative exam: GENERAL: Elderly female lying on bed appeared to be in no discomfort. She appears to be more alert today. HEENT: Normocephalic. Atraumatic. No conjunctival congestion or icterus. Patient has moist mucous membranes. NECK: Supple. Trachea midline. CHEST/LUNGS: Clear to auscultated bilaterally, breathing nonlabored. No wheezes crackles or rhonchi. HEART/CARDIOVASCULAR: Regular in rate and rhythm. S1 and S2 positive. ABDOMEN: Abdomen is soft, nontender. Patient has normal bowel sounds. SKIN: There is no rash. Warm and dry. NEURO: Moves all extremity, RLE might be little weaker. Follows command. MUSCULOSKELETAL: No joint effusion or tenderness. EXTRIMITY: No edema, no cyanosis or clubbing. PSYCH: cooperative. - Constitutional Vitals: Temp Pulse Resp BP Pulse Ox 97.9 F 54 L 13 124/59 96 11/19/16 08:00 11/19/16 11:31 11/19/16 11:31 11/19/16 11:31 11/19/16 11:00 Results - Labs CBC & Chem 7: 11/18/16 13:53 11/17/16 17:00 Labs: Laboratory Last Values WBC 6.6 K/mm3 (4.5-11.0) 11/17/16 17:00 RBC 4.37 M/mm3 (3.65-5.03) 11/17/16 17:00 Hgb 12.0 gm/dl (10.1-14.3) 11/18/16 13:53 Hct 37.6 % (30.3-42.9) 11/18/16 13:53 MCV 84 fl (79-97) 11/17/16 17:00 MCH 27 pg (28-32) L 11/17/16 17:00 MCHC 32 % (30-34) 11/17/16 17:00 RDW 14.0 % (13.2-15.2) 11/17/16 17:00 Plt Count 258 K/mm3 (140-440) 11/18/16 13:53 Lymph % (Auto) 42.9 % (13.4-35.0) H 11/17/16 17:00 [place]cock % (Auto) 8.4 % (0.0-7.3) H 11/17/16 17:00 Eos % (Auto) 1.3 % (0.0-4.3) 11/17/16 17:00 Baso % (Auto) 0.9 % (0.0-1.8) 11/17/16 17:00 Lymph # 2.8 K/mm3 (1.2-5.4) 11/17/16 17:00 Glasscock # 0.6 K/mm3 (0.0-0.8) 11/17/16 17:00 Eos # 0.1 K/mm3 (0.0-0.4) 11/17/16 17:00 Baso # 0.1 K/mm3 (0.0-0.1) 11/17/16 17:00 Seg Neutrophils % 46.5 % (40.0-70.0) 11/17/16 17:00 Seg Neutrophils # 3.1 K/mm3 (1.8-7.7) 11/17/16 17:00 PT 14.0 Sec. (12.2-14.9) 11/18/16 13:46 INR 1.09 (0.87-1.13) 11/18/16 13:46 APTT 28.5 Sec. (24.2-36.6) 11/18/16 13:46 Thrombin Time 15.9 Sec. (15.1-19.6) 11/17/16 17:00 Sodium 140 mmol/L (137-145) 11/17/16 17:00 Potassium 3.7 mmol/L (3.6-5.0) 11/17/16 17:00 Chloride 101.3 mmol/L (98-107) 11/17/16 17:00 Carbon Dioxide 24 mmol/L (22-30) 11/17/16 17:00 Anion Gap 18 mmol/L 11/17/16 17:00 BUN 12 mg/dL (7-17) 11/17/16 17:00 Creatinine 0.6 mg/dL (0.7-1.2) L 11/17/16 17:00 Estimated GFR > 60 ml/min 11/17/16 17:00 BUN/Creatinine Ratio 20.00 % 11/17/16 17:00 Glucose 134 mg/dL (65-100) H 11/17/16 17:00 Lactic Acid 1.4 mmol/L (0.7-2.0) 11/17/16 19:43 Calcium 9.7 mg/dL (8.4-10.2) 11/17/16 17:00 Troponin T < 0.010 ng/mL (0.00-0.029) 11/17/16 17:00 Triglycerides 83 mg/dL (2-149) 11/19/16 05:00 Cholesterol 168 mg/dL (50-199) 11/19/16 05:00 LDL Cholesterol Direct 110 mg/dL (50-130) 11/19/16 05:00 HDL Cholesterol 42 mg/dL (40-59) 11/19/16 05:00 Cholesterol/HDL Ratio 4.00 % 11/19/16 05:00 Plasma/Serum Alcohol < 0.01 gm% (0-0.07) 11/17/16 18:50 - Imaging and Cardiology CT Scan - head: report reviewed (Old CVA, no new finding)
[2016-11-19] MEDS ORDERED: HALDOL IM PRN (12:00)
--- NOTE | 2016-11-19 13:30 | Magnetic Resonance Report ---
Cranial CT without contrast. Procedure: Routine brain protocol without contrast. Findings: There is an area of gyriform restricted diffusion in the left posterior parietal lobe adjacent to a chronic infarct which has been previously noted. Minimal involvement of the left temporal lobe is also present. The posterior fossa is unremarkable. The ventricles are normal except for ventriculomegaly ex vacuo involving the left occipital horn of the lateral ventricle. There are symmetrical areas of hyperintense T2 signal in the periventricular region. There are no masses or extra-axial collections. The pituitary is normal although extensive motion artifact is seen on the sagittal image sequence. There is hyperintense T2 signal in the mastoid air cells bilaterally, worse on the right. There is mild inflammatory change in ethmoid air cells bilaterally. Impression: Acute Extension of left posterior parietal infarct as detailed above. 2. Chronic periventricular micro-angiopathic ischemic changes. 3. Chronic mastoiditis and chronic ethmoid sinusitis. Comment: These findings were given to the patient's nurse Sandy at 1:35 PM on November 19, 2016.
[2016-11-19] MEDS: NAMENDA XR PO SCH (22:34)
[2016-11-20 05:49] LABS: Hemoglobin 11.5 gm/dl (10.1-14.3)
[2016-11-20] MEDS: ASPIRIN PO SCH (11:04)
[2016-11-20] MEDS: LOVENOX SUB-Q SCH (11:05)
[2016-11-20] MEDS: PEPCID IV SCH (11:05)
[2016-11-20] MEDS: RisperDAL PO SCH ×2 (11:05→21:59)
--- NOTE | 2016-11-20 11:12 | Progress Note ---
Assessment and Plan (1) Hypoxemia Current Visit: Yes Status: Acute Plan to address problem: - resolved - prn oxygen therapy (2) Acute ischemic stroke Current Visit: Yes Status: Acute Plan to address problem: - continue secondary prevention startegies - seen by neurology - fall precautions - BP control - aspirin therapy - DVT prophylaxis - aspiration precautions (3) Expressive aphasia Current Visit: Yes Status: Acute Plan to address problem: - per neurology (4) Discharge planning issues Current Visit: Yes Status: Acute Plan to address problem: - unclear if can still be managed at home vs NH or SNF ...d/c planning per attending Subjective Date of service: 11/20/16 Principal diagnosis: acute stroke Interval history: Seen and examined at bedside; 24 hour events reviewed; nursing and respiratory care staff consulted; no adverse overnight events reported to me; remains with AMS and aphasia; no emesis or overt aspiration; no falls Objective Vital Signs - 12hr 11/20/16 11/20/16 11/20/16 00:55 05:25 08:45 Temperature 97.7 F 98.7 F 97.8 F Pulse Rate [ 67 67 75 Right] Respiratory 19 20 18 Rate Blood Pressure 122/62 132/63 142/84 O2 Sat by Pulse 95 95 97 Oximetry Constitutional: no acute distress, alert Eyes: non-icteric ENT: oropharynx moist Neck: supple, no lymphadenopathy Effort: normal Ascultation: Bilateral: clear, diminished breath sounds Cardiovascular: regular rate and rhythm Gastrointestinal: normoactive bowel sounds, soft, non-tender, non-distended Integumentary: normal Extremities: no cyanosis, no edema, pulses normal, no ischemia or petechiae Neurologic: unable to assess, other (right hemiparesis) Psychiatric: anxious CBC and BMP: 11/22/16 04:20 11/17/16 17:00 ABG, PT/INR, D-dimer: PT/INR, D-dimer PT 14.0 Sec. (12.2-14.9) 11/18/16 13:46 INR 1.09 (0.87-1.13) 11/18/16 13:46 Abnormal lab findings: Abnormal Labs 11/19/16 11/20/16 21:06 07:32 POC Glucose 125 H 163 H
--- NOTE | 2016-11-20 15:54 | Progress Note ---
Assessment and Plan Assessment and plan: 81-year-old -[place] female with past medical history significant for dementia was brought to the emergency department by EMS after the patient became agitated, disoriented, right-sided weakness, drooling of saliva. In the ER CT head was done and didn't show any acute intracranial bleeding and she was treated with TPA and admitted with stroke protocol. 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 Medical records and medication list reviewed. No acute event overnight noted by the RN. Patient appears more alert today. Placed on restrain and still on it Hospitalist Physical - Physical exam Narrative exam: GENERAL: Elderly female lying on bed appeared to be in no discomfort. She appears to be more alert today. HEENT: Normocephalic. Atraumatic. No conjunctival congestion or icterus. Patient has moist mucous membranes. NECK: Supple. Trachea midline. CHEST/LUNGS: Clear to auscultated bilaterally, breathing nonlabored. No wheezes crackles or rhonchi. HEART/CARDIOVASCULAR: Regular in rate and rhythm. S1 and S2 positive. ABDOMEN: Abdomen is soft, nontender. Patient has normal bowel sounds. SKIN: There is no rash. Warm and dry. NEURO: Moves all extremity, RLE might be little weaker. Follows command. MUSCULOSKELETAL: No joint effusion or tenderness. EXTRIMITY: No edema, no cyanosis or clubbing. PSYCH: cooperative. - Constitutional Vitals: Temp Pulse Resp BP Pulse Ox 97.9 F 69 16 116/58 98 11/20/16 13:27 11/20/16 13:27 11/20/16 13:27 11/20/16 13:27 11/20/16 13:27 Results - Labs CBC & Chem 7: 11/20/16 04:37 11/17/16 17:00 Labs: Laboratory Last Values WBC 6.6 K/mm3 (4.5-11.0) 11/17/16 17:00 RBC 4.37 M/mm3 (3.65-5.03) 11/17/16 17:00 Hgb 11.5 gm/dl (10.1-14.3) 11/20/16 04:37 Hct 35.0 % (30.3-42.9) 11/20/16 04:37 MCV 84 fl (79-97) 11/17/16 17:00 MCH 27 pg (28-32) L 11/17/16 17:00 MCHC 32 % (30-34) 11/17/16 17:00 RDW 14.0 % (13.2-15.2) 11/17/16 17:00 Plt Count 262 K/mm3 (140-440) 11/20/16 04:37 Lymph % (Auto) 42.9 % (13.4-35.0) H 11/17/16 17:00 [place] % (Auto) 8.4 % (0.0-7.3) H 11/17/16 17:00 Eos % (Auto) 1.3 % (0.0-4.3) 11/17/16 17:00 Baso % (Auto) 0.9 % (0.0-1.8) 11/17/16 17:00 Lymph # 2.8 K/mm3 (1.2-5.4) 11/17/16 17:00 [place] # 0.6 K/mm3 (0.0-0.8) 11/17/16 17:00 Eos # 0.1 K/mm3 (0.0-0.4) 11/17/16 17:00 Baso # 0.1 K/mm3 (0.0-0.1) 11/17/16 17:00 Seg Neutrophils % 46.5 % (40.0-70.0) 11/17/16 17:00 Seg Neutrophils # 3.1 K/mm3 (1.8-7.7) 11/17/16 17:00 PT 14.0 Sec. (12.2-14.9) 11/18/16 13:46 INR 1.09 (0.87-1.13) 11/18/16 13:46 APTT 28.5 Sec. (24.2-36.6) 11/18/16 13:46 Thrombin Time 15.9 Sec. (15.1-19.6) 11/17/16 17:00 Sodium 140 mmol/L (137-145) 11/17/16 17:00 Potassium 3.7 mmol/L (3.6-5.0) 11/17/16 17:00 Chloride 101.3 mmol/L (98-107) 11/17/16 17:00 Carbon Dioxide 24 mmol/L (22-30) 11/17/16 17:00 Anion Gap 18 mmol/L 11/17/16 17:00 BUN 12 mg/dL (7-17) 11/17/16 17:00 Creatinine 0.6 mg/dL (0.7-1.2) L 11/17/16 17:00 Estimated GFR > 60 ml/min 11/17/16 17:00 BUN/Creatinine Ratio 20.00 % 11/17/16 17:00 Glucose 134 mg/dL (65-100) H 11/17/16 17:00 POC Glucose 163 (70-105) H 11/20/16 07:32 Lactic Acid 1.4 mmol/L (0.7-2.0) 11/17/16 19:43 Calcium 9.7 mg/dL (8.4-10.2) 11/17/16 17:00 Troponin T < 0.010 ng/mL (0.00-0.029) 11/17/16 17:00 Triglycerides 83 mg/dL (2-149) 11/19/16 05:00 Cholesterol 168 mg/dL (50-199) 11/19/16 05:00 LDL Cholesterol Direct 110 mg/dL (50-130) 11/19/16 05:00 HDL Cholesterol 42 mg/dL (40-59) 11/19/16 05:00 Cholesterol/HDL Ratio 4.00 % 11/19/16 05:00 Prolactin 32.1 ng/mL () 11/17/16 19:49 Plasma/Serum Alcohol < 0.01 gm% (0-0.07) 11/17/16 18:50 - Imaging and Cardiology MRI - head: report reviewed
[2016-11-20] MEDS: NAMENDA XR PO SCH (21:59)
[2016-11-21] MEDS: ASPIRIN PO SCH (10:22)
[2016-11-21] MEDS: RisperDAL PO SCH ×2 (10:23→21:58)
[2016-11-21] MEDS: LOVENOX SUB-Q SCH (10:24)
[2016-11-21] MEDS: PEPCID IV SCH (10:24)
--- NOTE | 2016-11-21 11:15 | Progress Note ---
Assessment and Plan (1) Hypoxemia Current Visit: Yes Status: Acute Plan to address problem: - resolved - continue prn oxygen therapy (2) Acute ischemic stroke Current Visit: Yes Status: Acute Plan to address problem: - continue secondary prevention startegies - seen by neurology - continue fall precautions - BP control - aspirin therapy - DVT prophylaxis - continue aspiration precautions (3) Expressive aphasia Current Visit: Yes Status: Acute Plan to address problem: - per neurology (4) Discharge planning issues Current Visit: Yes Status: Acute Plan to address problem: - unclear if can still be managed at home vs NH or SNF ...d/c planning per attending Subjective Date of service: 11/21/16 Principal diagnosis: acute stroke Interval history: Seen and examined at bedside; 24 hour events reviewed; nursing and respiratory care staff consulted; no adverse overnight events reported to me; resting in bed ; mumbling incomprehensibly; no new issues overall Objective Vital Signs - 12hr 11/21/16 11/21/16 11/21/16 01:07 05:54 06:00 Temperature 98.1 F 97.9 F Pulse Rate 60 Pulse Rate [ 72 63 Right Dorsalis Pedis] Pulse Rate [ Right Radial] Respiratory 20 20 Rate Blood Pressure 112/72 [Left Arm] Blood Pressure [Right Arm] O2 Sat by Pulse 98 96 Oximetry 11/21/16 11/21/16 07:47 10:00 Temperature 97.3 F L Pulse Rate 64 Pulse Rate [ Right Dorsalis Pedis] Pulse Rate [ 66 Right Radial] Respiratory 18 Rate Blood Pressure [Left Arm] Blood Pressure 135/77 [Right Arm] O2 Sat by Pulse 99 Oximetry Constitutional: no acute distress, alert Eyes: non-icteric ENT: oropharynx moist Neck: supple, no lymphadenopathy Effort: mildly labored Ascultation: Bilateral: diminished breath sounds, rales (scant in posterior bases) Cardiovascular: regular rate and rhythm Gastrointestinal: normoactive bowel sounds, soft, non-tender, non-distended Integumentary: normal Extremities: no cyanosis, no edema, pulses normal, no ischemia or petechiae Neurologic: unable to assess, other (right hemiparesis) CBC and BMP: 11/22/16 04:20 11/17/16 17:00 ABG, PT/INR, D-dimer: PT/INR, D-dimer PT 14.0 Sec. (12.2-14.9) 11/18/16 13:46 INR 1.09 (0.87-1.13) 11/18/16 13:46 Abnormal lab findings: Abnormal Labs 11/19/16 11/20/16 21:06 07:32 POC Glucose 125 H 163 H
--- NOTE | 2016-11-21 16:22 | Progress Note ---
Assessment and Plan Assessment and plan: 81-year-old -[place] female with past medical history significant for dementia was brought to the emergency department by EMS after the patient became agitated, disoriented, right-sided weakness, drooling of saliva. In the ER CT head was done and didn't show any acute intracranial bleeding and she was treated with TPA and admitted with stroke protocol. 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 Medical records and medication list reviewed. No acute event overnight noted by the RN. Patient appears more alert today. Off restrain today, PT eval pending Hospitalist Physical - Physical exam Narrative exam: GENERAL: Elderly female lying on bed appeared to be in no discomfort. She appears to be more alert today. HEENT: Normocephalic. Atraumatic. No conjunctival congestion or icterus. Patient has moist mucous membranes. NECK: Supple. Trachea midline. CHEST/LUNGS: Clear to auscultated bilaterally, breathing nonlabored. No wheezes crackles or rhonchi. HEART/CARDIOVASCULAR: Regular in rate and rhythm. S1 and S2 positive. ABDOMEN: Abdomen is soft, nontender. Patient has normal bowel sounds. SKIN: There is no rash. Warm and dry. NEURO: Moves all extremity, RLE might be little weaker. Follows command. MUSCULOSKELETAL: No joint effusion or tenderness. EXTRIMITY: No edema, no cyanosis or clubbing. PSYCH: cooperative. - Constitutional Vitals: Temp Pulse Resp BP Pulse Ox 97.8 F 65 18 119/67 96 11/21/16 16:14 11/21/16 16:14 11/21/16 16:14 11/21/16 16:14 11/21/16 16:14 Results - Labs CBC & Chem 7: 11/20/16 04:37 11/17/16 17:00 Labs: Laboratory Last Values WBC 6.6 K/mm3 (4.5-11.0) 11/17/16 17:00 RBC 4.37 M/mm3 (3.65-5.03) 11/17/16 17:00 Hgb 11.5 gm/dl (10.1-14.3) 11/20/16 04:37 Hct 35.0 % (30.3-42.9) 11/20/16 04:37 MCV 84 fl (79-97) 11/17/16 17:00 MCH 27 pg (28-32) L 11/17/16 17:00 MCHC 32 % (30-34) 11/17/16 17:00 RDW 14.0 % (13.2-15.2) 11/17/16 17:00 Plt Count 262 K/mm3 (140-440) 11/20/16 04:37 Lymph % (Auto) 42.9 % (13.4-35.0) H 11/17/16 17:00 [place] % (Auto) 8.4 % (0.0-7.3) H 11/17/16 17:00 Eos % (Auto) 1.3 % (0.0-4.3) 11/17/16 17:00 Baso % (Auto) 0.9 % (0.0-1.8) 11/17/16 17:00 Lymph # 2.8 K/mm3 (1.2-5.4) 11/17/16 17:00 [place] # 0.6 K/mm3 (0.0-0.8) 11/17/16 17:00 Eos # 0.1 K/mm3 (0.0-0.4) 11/17/16 17:00 Baso # 0.1 K/mm3 (0.0-0.1) 11/17/16 17:00 Seg Neutrophils % 46.5 % (40.0-70.0) 11/17/16 17:00 Seg Neutrophils # 3.1 K/mm3 (1.8-7.7) 11/17/16 17:00 PT 14.0 Sec. (12.2-14.9) 11/18/16 13:46 INR 1.09 (0.87-1.13) 11/18/16 13:46 APTT 28.5 Sec. (24.2-36.6) 11/18/16 13:46 Thrombin Time 15.9 Sec. (15.1-19.6) 11/17/16 17:00 Sodium 140 mmol/L (137-145) 11/17/16 17:00 Potassium 3.7 mmol/L (3.6-5.0) 11/17/16 17:00 Chloride 101.3 mmol/L (98-107) 11/17/16 17:00 Carbon Dioxide 24 mmol/L (22-30) 11/17/16 17:00 Anion Gap 18 mmol/L 11/17/16 17:00 BUN 12 mg/dL (7-17) 11/17/16 17:00 Creatinine 0.6 mg/dL (0.7-1.2) L 11/17/16 17:00 Estimated GFR > 60 ml/min 11/17/16 17:00 BUN/Creatinine Ratio 20.00 % 11/17/16 17:00 Glucose 134 mg/dL (65-100) H 11/17/16 17:00 POC Glucose 163 (70-105) H 11/20/16 07:32 Lactic Acid 1.4 mmol/L (0.7-2.0) 11/17/16 19:43 Calcium 9.7 mg/dL (8.4-10.2) 11/17/16 17:00 Troponin T < 0.010 ng/mL (0.00-0.029) 11/17/16 17:00 Triglycerides 83 mg/dL (2-149) 11/19/16 05:00 Cholesterol 168 mg/dL (50-199) 11/19/16 05:00 LDL Cholesterol Direct 110 mg/dL (50-130) 11/19/16 05:00 HDL Cholesterol 42 mg/dL (40-59) 11/19/16 05:00 Cholesterol/HDL Ratio 4.00 % 11/19/16 05:00 Prolactin 32.1 ng/mL () 11/17/16 19:49 Plasma/Serum Alcohol < 0.01 gm% (0-0.07) 11/17/16 18:50
[2016-11-21] MEDS: NAMENDA XR PO SCH (21:58)
[2016-11-22] MEDS: ASPIRIN PO SCH (10:27)
[2016-11-22] MEDS: PEPCID IV SCH (10:27)
[2016-11-22] MEDS: LOVENOX SUB-Q SCH (10:27)
[2016-11-22] MEDS: RisperDAL PO SCH ×2 (10:27→22:51)
--- NOTE | 2016-11-22 12:42 | Progress Note ---
Subjective Date of service: 11/22/16 Principal diagnosis: acute stroke Interval history: Seen and examined at bedside; 24 hour events reviewed; nursing and respiratory care staff consulted; no adverse overnight events reported to me; Objective Vital Signs - 12hr 11/22/16 11/22/16 11/22/16 00:52 05:51 08:02 Temperature 97.3 F L 98.4 F 97.5 F L Pulse Rate [ 60 Left Radial] Pulse Rate [ 55 L 58 L Right Dorsalis Pedis] Respiratory 18 20 20 Rate Blood Pressure 121/67 [Left Arm] Blood Pressure 120/61 129/63 [Right Arm] O2 Sat by Pulse 98 97 97 Oximetry 11/22/16 12:20 Temperature 97.8 F Pulse Rate [ 61 Left Radial] Pulse Rate [ Right Dorsalis Pedis] Respiratory 20 Rate Blood Pressure [Left Arm] Blood Pressure 120/70 [Right Arm] O2 Sat by Pulse 97 Oximetry CBC and BMP: 11/22/16 04:20 11/17/16 17:00 ABG, PT/INR, D-dimer: PT/INR, D-dimer PT 14.0 Sec. (12.2-14.9) 11/18/16 13:46 INR 1.09 (0.87-1.13) 11/18/16 13:46 Abnormal lab findings: Abnormal Labs 11/19/16 11/20/16 21:06 07:32 POC Glucose 125 H 163 H
--- NOTE | 2016-11-22 16:19 | Progress Note ---
Assessment and Plan Assessment and plan: 81-year-old -[place]ian female with past medical history significant for dementia was brought to the emergency department by EMS after the patient became agitated, disoriented, right-sided weakness, drooling of saliva. In the ER CT head was done and didn't show any acute intracranial bleeding and she was treated with TPA and admitted with stroke protocol. 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 Medical records and medication list reviewed. No acute event overnight noted by the RN. Patient appears more alert today. Off restrain, unable to feed herself discussed with daughter at bedside and by phone, she wont be able to take the pt back home now CM consulted for DIANA Hospitalist Physical - Physical exam Narrative exam: GENERAL: Elderly female lying on bed appeared to be in no discomfort. She appears to be more alert today. HEENT: Normocephalic. Atraumatic. No conjunctival congestion or icterus. Patient has moist mucous membranes. NECK: Supple. Trachea midline. CHEST/LUNGS: Clear to auscultated bilaterally, breathing nonlabored. No wheezes crackles or rhonchi. HEART/CARDIOVASCULAR: Regular in rate and rhythm. S1 and S2 positive. ABDOMEN: Abdomen is soft, nontender. Patient has normal bowel sounds. SKIN: There is no rash. Warm and dry. NEURO: Moves all extremity, RLE might be little weaker. Not oriented to time and place MUSCULOSKELETAL: No joint effusion or tenderness. EXTRIMITY: No edema, no cyanosis or clubbing. PSYCH: cooperative. - Constitutional Vitals: Temp Pulse Resp BP Pulse Ox 97.8 F 61 20 120/70 97 11/22/16 12:20 11/22/16 12:20 11/22/16 12:20 11/22/16 12:20 11/22/16 12:20 Results - Labs CBC & Chem 7: 11/22/16 04:20 11/17/16 17:00 Labs: Laboratory Last Values WBC 6.6 K/mm3 (4.5-11.0) 11/17/16 17:00 RBC 4.37 M/mm3 (3.65-5.03) 11/17/16 17:00 Hgb 11.0 gm/dl (10.1-14.3) 11/22/16 04:20 Hct 34.0 % (30.3-42.9) 11/22/16 04:20 MCV 84 fl (79-97) 11/17/16 17:00 MCH 27 pg (28-32) L 11/17/16 17:00 MCHC 32 % (30-34) 11/17/16 17:00 RDW 14.0 % (13.2-15.2) 11/17/16 17:00 Plt Count 227 K/mm3 (140-440) 11/22/16 04:20 Lymph % (Auto) 42.9 % (13.4-35.0) H 11/17/16 17:00 [place] % (Auto) 8.4 % (0.0-7.3) H 11/17/16 17:00 Eos % (Auto) 1.3 % (0.0-4.3) 11/17/16 17:00 Baso % (Auto) 0.9 % (0.0-1.8) 11/17/16 17:00 Lymph # 2.8 K/mm3 (1.2-5.4) 11/17/16 17:00 [place] # 0.6 K/mm3 (0.0-0.8) 11/17/16 17:00 Eos # 0.1 K/mm3 (0.0-0.4) 11/17/16 17:00 Baso # 0.1 K/mm3 (0.0-0.1) 11/17/16 17:00 Seg Neutrophils % 46.5 % (40.0-70.0) 11/17/16 17:00 Seg Neutrophils # 3.1 K/mm3 (1.8-7.7) 11/17/16 17:00 PT 14.0 Sec. (12.2-14.9) 11/18/16 13:46 INR 1.09 (0.87-1.13) 11/18/16 13:46 APTT 28.5 Sec. (24.2-36.6) 11/18/16 13:46 Thrombin Time 15.9 Sec. (15.1-19.6) 11/17/16 17:00 Sodium 140 mmol/L (137-145) 11/17/16 17:00 Potassium 3.7 mmol/L (3.6-5.0) 11/17/16 17:00 Chloride 101.3 mmol/L (98-107) 11/17/16 17:00 Carbon Dioxide 24 mmol/L (22-30) 11/17/16 17:00 Anion Gap 18 mmol/L 11/17/16 17:00 BUN 12 mg/dL (7-17) 11/17/16 17:00 Creatinine 0.6 mg/dL (0.7-1.2) L 11/17/16 17:00 Estimated GFR > 60 ml/min 11/17/16 17:00 BUN/Creatinine Ratio 20.00 % 11/17/16 17:00 Glucose 134 mg/dL (65-100) H 11/17/16 17:00 POC Glucose 163 (70-105) H 11/20/16 07:32 Lactic Acid 1.4 mmol/L (0.7-2.0) 11/17/16 19:43 Calcium 9.7 mg/dL (8.4-10.2) 11/17/16 17:00 Troponin T < 0.010 ng/mL (0.00-0.029) 11/17/16 17:00 Triglycerides 83 mg/dL (2-149) 11/19/16 05:00 Cholesterol 168 mg/dL (50-199) 11/19/16 05:00 LDL Cholesterol Direct 110 mg/dL (50-130) 11/19/16 05:00 HDL Cholesterol 42 mg/dL (40-59) 11/19/16 05:00 Cholesterol/HDL Ratio 4.00 % 11/19/16 05:00 Prolactin 32.1 ng/mL () 11/17/16 19:49 Plasma/Serum Alcohol < 0.01 gm% (0-0.07) 11/17/16 18:50
[2016-11-22] MEDS: NAMENDA XR PO SCH (22:51)
[2016-11-23] MEDS: LOVENOX SUB-Q SCH (10:47)
[2016-11-23] MEDS: PEPCID IV SCH (10:47)
[2016-11-23] MEDS: ASPIRIN PO SCH (10:48)
[2016-11-23] MEDS: RisperDAL PO SCH (10:48)
[2016-11-23] MEDS: PEPCID PO SCH (10:52)
--- NOTE | 2016-11-23 15:02 | Progress Note ---
Assessment and Plan Assessment and plan: 81-year-old -[place] female with past medical history significant for dementia was brought to the emergency department by EMS after the patient became agitated, disoriented, right-sided weakness, drooling of saliva. In the ER CT head was done and didn't show any acute intracranial bleeding and she was treated with TPA and admitted with stroke protocol. 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, restarted on Asp and statin after 24h of post TPA - MRI brain showed extension of left posterior parietal previous infract - passed swallow study, placed on pureed diet, - PT eval pending Dementia with acute delirium - cont her home medications - off restrain, prn haldol for agitation - unable to follow any commend GI and DVT prophylaxis -Continue on Protonix and lovenox Disposition: DIANA, ALIN consulted History Interval history: Patient seen and examined. Medical records and medication list reviewed. No acute event overnight noted by the RN. Patient appears more alert today. Off restrain, unable to feed herself discussed with daughter and she wont be able to take the pt back home now ALIN consulted for DIANA Hospitalist Physical - Physical exam Narrative exam: GENERAL: Elderly female lying on bed appeared to be in no discomfort. She appears to be more alert today. HEENT: Normocephalic. Atraumatic. No conjunctival congestion or icterus. Patient has moist mucous membranes. NECK: Supple. Trachea midline. CHEST/LUNGS: Clear to auscultated bilaterally, breathing nonlabored. No wheezes crackles or rhonchi. HEART/CARDIOVASCULAR: Regular in rate and rhythm. S1 and S2 positive. ABDOMEN: Abdomen is soft, nontender. Patient has normal bowel sounds. SKIN: There is no rash. Warm and dry. NEURO: Moves all extremity, RLE might be little weaker. Not oriented to time and place MUSCULOSKELETAL: No joint effusion or tenderness. EXTRIMITY: No edema, no cyanosis or clubbing. PSYCH: cooperative. - Constitutional Vitals: Temp Pulse Resp BP Pulse Ox 97.6 F 59 L 18 141/76 97 11/23/16 13:03 11/23/16 13:03 11/23/16 13:03 11/23/16 13:03 11/23/16 13:03 Results - Labs CBC & Chem 7: 11/22/16 04:20 11/17/16 17:00 Labs: Laboratory Last Values WBC 6.6 K/mm3 (4.5-11.0) 11/17/16 17:00 RBC 4.37 M/mm3 (3.65-5.03) 11/17/16 17:00 Hgb 11.0 gm/dl (10.1-14.3) 11/22/16 04:20 Hct 34.0 % (30.3-42.9) 11/22/16 04:20 MCV 84 fl (79-97) 11/17/16 17:00 MCH 27 pg (28-32) L 11/17/16 17:00 MCHC 32 % (30-34) 11/17/16 17:00 RDW 14.0 % (13.2-15.2) 11/17/16 17:00 Plt Count 227 K/mm3 (140-440) 11/22/16 04:20 Lymph % (Auto) 42.9 % (13.4-35.0) H 11/17/16 17:00 [place] % (Auto) 8.4 % (0.0-7.3) H 11/17/16 17:00 Eos % (Auto) 1.3 % (0.0-4.3) 11/17/16 17:00 Baso % (Auto) 0.9 % (0.0-1.8) 11/17/16 17:00 Lymph # 2.8 K/mm3 (1.2-5.4) 11/17/16 17:00 [place] # 0.6 K/mm3 (0.0-0.8) 11/17/16 17:00 Eos # 0.1 K/mm3 (0.0-0.4) 11/17/16 17:00 Baso # 0.1 K/mm3 (0.0-0.1) 11/17/16 17:00 Seg Neutrophils % 46.5 % (40.0-70.0) 11/17/16 17:00 Seg Neutrophils # 3.1 K/mm3 (1.8-7.7) 11/17/16 17:00 PT 14.0 Sec. (12.2-14.9) 11/18/16 13:46 INR 1.09 (0.87-1.13) 11/18/16 13:46 APTT 28.5 Sec. (24.2-36.6) 11/18/16 13:46 Thrombin Time 15.9 Sec. (15.1-19.6) 11/17/16 17:00 Sodium 140 mmol/L (137-145) 11/17/16 17:00 Potassium 3.7 mmol/L (3.6-5.0) 11/17/16 17:00 Chloride 101.3 mmol/L (98-107) 11/17/16 17:00 Carbon Dioxide 24 mmol/L (22-30) 11/17/16 17:00 Anion Gap 18 mmol/L 11/17/16 17:00 BUN 12 mg/dL (7-17) 11/17/16 17:00 Creatinine 0.6 mg/dL (0.7-1.2) L 11/17/16 17:00 Estimated GFR > 60 ml/min 11/17/16 17:00 BUN/Creatinine Ratio 20.00 % 11/17/16 17:00 Glucose 134 mg/dL (65-100) H 11/17/16 17:00 POC Glucose 97 (70-105) 11/22/16 21:15 Lactic Acid 1.4 mmol/L (0.7-2.0) 11/17/16 19:43 Calcium 9.7 mg/dL (8.4-10.2) 11/17/16 17:00 Troponin T < 0.010 ng/mL (0.00-0.029) 11/17/16 17:00 Triglycerides 83 mg/dL (2-149) 11/19/16 05:00 Cholesterol 168 mg/dL (50-199) 11/19/16 05:00 LDL Cholesterol Direct 110 mg/dL (50-130) 11/19/16 05:00 HDL Cholesterol 42 mg/dL (40-59) 11/19/16 05:00 Cholesterol/HDL Ratio 4.00 % 11/19/16 05:00 Prolactin 32.1 ng/mL () 11/17/16 19:49 Plasma/Serum Alcohol < 0.01 gm% (0-0.07) 11/17/16 18:50
[2016-11-24] MEDS: RisperDAL PO SCH ×2 (02:28→09:34)
[2016-11-24] MEDS: NAMENDA XR PO SCH (02:30)
[2016-11-24 06:16] LABS: Hematocrit 36.3 % (30.3-42.9); Hemoglobin 11.8 gm/dl (10.1-14.3)
[2016-11-24] MEDS: PEPCID PO SCH (09:34)
[2016-11-24] MEDS: LOVENOX SUB-Q SCH (09:34)
[2016-11-24] MEDS: ASPIRIN PO SCH (09:34)
[2016-11-24 10:42] VITALS: BP 124/74
--- NOTE | 2016-11-24 13:12 | Progress Note ---
Assessment and Plan Assessment and plan: Patient is a 81-year-old -Indian female with a [place] past medical history significant for dementia was brought to the emergency department by EMS after the patient became agitated, disoriented, right-sided weakness, drooling of saliva. In the ER CT head was done and didn't show any acute intracranial bleeding and she was treated with TPA and admitted with stroke protocol. 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 Medical records and medication list reviewed. Patient seen and examined. Follow up on current diagnosis. Overnight uneventful. No cp, sob, n/v or severe headaches. Imaging, old records, testing, labs, nursing notes reviewed. No acute event overnight noted by the RN. Patient appears more alert today. Off restrain, unable to feed herself; discussed with daughter and she wont be able to take the pt back home now, ALIN consulted for DIANA Hospitalist Physical - Physical exam Narrative exam: GENERAL: Elderly female lying on bed appeared to be in no discomfort, awake and alert HEENT: Normocephalic. Atraumatic. No conjunctival congestion or icterus. Patient has moist mucous membranes. NECK: Supple. Trachea midline. CHEST/LUNGS: Clear to auscultated bilaterally, breathing nonlabored. No wheezes crackles or rhonchi. HEART/CARDIOVASCULAR: Regular in rate and rhythm. S1 and S2 positive. ABDOMEN: Abdomen is soft, nontender. Patient has normal bowel sounds. SKIN: There is no rash. Warm and dry. NEURO: Moves all extremity, RLE might be little weaker. Not oriented to time and place, doesn't follow commands MUSCULOSKELETAL: No joint effusion or tenderness. EXTRIMITY: No edema, no cyanosis or clubbing. PSYCH: cooperative. - Constitutional Vitals: Temp Pulse Resp BP Pulse Ox 97.5 F L 62 18 124/74 100 11/24/16 08:00 11/24/16 08:00 11/24/16 08:00 11/24/16 08:00 11/24/16 08:00 Results - Labs CBC & Chem 7: 11/24/16 05:50 11/17/16 17:00 Labs: Laboratory Last Values WBC 6.6 K/mm3 (4.5-11.0) 11/17/16 17:00 RBC 4.37 M/mm3 (3.65-5.03) 11/17/16 17:00 Hgb 11.8 gm/dl (10.1-14.3) 11/24/16 05:50 Hct 36.3 % (30.3-42.9) 11/24/16 05:50 MCV 84 fl (79-97) 11/17/16 17:00 MCH 27 pg (28-32) L 11/17/16 17:00 MCHC 32 % (30-34) 11/17/16 17:00 RDW 14.0 % (13.2-15.2) 11/17/16 17:00 Plt Count 252 K/mm3 (140-440) 11/24/16 05:50 Lymph % (Auto) 42.9 % (13.4-35.0) H 11/17/16 17:00 Warren % (Auto) 8.4 % (0.0-7.3) H 11/17/16 17:00 Eos % (Auto) 1.3 % (0.0-4.3) 11/17/16 17:00 Baso % (Auto) 0.9 % (0.0-1.8) 11/17/16 17:00 Lymph # 2.8 K/mm3 (1.2-5.4) 11/17/16 17:00 Warren # 0.6 K/mm3 (0.0-0.8) 11/17/16 17:00 Eos # 0.1 K/mm3 (0.0-0.4) 11/17/16 17:00 Baso # 0.1 K/mm3 (0.0-0.1) 11/17/16 17:00 Seg Neutrophils % 46.5 % (40.0-70.0) 11/17/16 17:00 Seg Neutrophils # 3.1 K/mm3 (1.8-7.7) 11/17/16 17:00 PT 14.0 Sec. (12.2-14.9) 11/18/16 13:46 INR 1.09 (0.87-1.13) 11/18/16 13:46 APTT 28.5 Sec. (24.2-36.6) 11/18/16 13:46 Thrombin Time 15.9 Sec. (15.1-19.6) 11/17/16 17:00 Sodium 140 mmol/L (137-145) 11/17/16 17:00 Potassium 3.7 mmol/L (3.6-5.0) 11/17/16 17:00 Chloride 101.3 mmol/L (98-107) 11/17/16 17:00 Carbon Dioxide 24 mmol/L (22-30) 11/17/16 17:00 Anion Gap 18 mmol/L 11/17/16 17:00 BUN 12 mg/dL (7-17) 11/17/16 17:00 Creatinine 0.6 mg/dL (0.7-1.2) L 11/17/16 17:00 Estimated GFR > 60 ml/min 11/17/16 17:00 BUN/Creatinine Ratio 20.00 % 11/17/16 17:00 Glucose 134 mg/dL (65-100) H 11/17/16 17:00 POC Glucose 104 (70-105) 11/23/16 12:02 Lactic Acid 1.4 mmol/L (0.7-2.0) 11/17/16 19:43 Calcium 9.7 mg/dL (8.4-10.2) 11/17/16 17:00 Troponin T < 0.010 ng/mL (0.00-0.029) 11/17/16 17:00 Triglycerides 83 mg/dL (2-149) 11/19/16 05:00 Cholesterol 168 mg/dL (50-199) 11/19/16 05:00 LDL Cholesterol Direct 110 mg/dL (50-130) 11/19/16 05:00 HDL Cholesterol 42 mg/dL (40-59) 11/19/16 05:00 Cholesterol/HDL Ratio 4.00 % 11/19/16 05:00 Prolactin 32.1 ng/mL () 11/17/16 19:49 Plasma/Serum Alcohol < 0.01 gm% (0-0.07) 11/17/16 18:50 - Imaging and Cardiology CT Scan - head: report reviewed
--- NOTE | 2016-11-24 16:43 | Discharge Summary ---
Providers - Providers Date of Admission: 11/17/16 23:20 Date of discharge: 11/24/16 Attending physician: MAKAYLA CALZADA 11/18/16 01:39 Consult to Physician [CONS] Urgent Consulting Provider: JAMES BENOIT Reason For Exam: TPA/ccu admit Place consult to:: answering service Notified:: yes If yes, spoke with:: Time called:: 23:25 Comment:: called on 11-17-16 @ 3274 Speech Therapy Evaluation and Treat [CONS] Routine Reason For Exam: CVA 11/18/16 01:41 Physical Therapy Evaluation and Treat [CONS] Routine Comment: Reason For Exam: acute cva 11/18/16 01:42 Consult to Physician [CONS] Routine Consulting Provider: ANÍBAL RIVERA Reason For Exam: acute CVA Place consult to:: answering service Notified:: yes Phone number called:: [phone] Time called:: 06:25 11/22/16 16:19 Consult to Case Management [CONS] Routine Services Needed at Discharge: Other Notified:: family caseworker Additional Physician Instructions: DIANA/SNF Primary care physician: SECURITY ALARM INSTALLER Hospitalization Condition: Fair Hospital course: Patient is a 81-year-old -[place] female with a past medical history significant for dementia was brought to the emergency department by EMS after the patient became agitated, disoriented, right-sided weakness, drooling of saliva. In the ER CT head was done and didn't show any acute intracranial bleeding and she was treated with TPA and admitted with stroke protocol. 2016 Brain MRI shows acute extension of left posterior parietal infarct. 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, restarted on Asp and statin after 24h of post TPA - MRI brain showed extension of left posterior parietal previous infract - passed swallow study, placed on pureed diet, Dementia with acute delirium - cont her home medications - off restrain, prn haldol for agitation - unable to follow any commend Dyslipidemia - statin GI and DVT prophylaxis -Continue on Protonix and lovenox Disposition: DIANA, CM consulted, waiting on daughter to select a facility===> daughter has refused placement and wants to take her mother home today Disposition: DC/[place] HOME UNDER HOME HE[facility] Time spent for discharge: 36 minutes Core Measure Documentation - Palliative Care Palliative Care/ Comfort Measures: Not Applicable - Core Measures Any of the following diagnoses?: stroke - VTE Discharge Requirements Deep Vein Thrombosis/Pulmonary Embolism Present on Admission: No Has pt received <5 days of overlap therapy or INR<2.0: No Anticoagulant overlap therapy prescribed at discharge: No Contraindication No Overlap Therapy order at DC: Not Indicated - Stroke Discharge Requirements Statin for LDL = or >70 mg/dl on DC: Yes Anticoag for atrial fib/atrial flutter: Not Applicable Reason for no anticoag for AF/F on DC: Not Indicated Antithrombotic for ischemic stroke: Yes Exam - Physical Exam Narrative exam: GENERAL: Elderly female lying on bed appeared to be in no discomfort, awake and alert HEENT: Normocephalic. Atraumatic. No conjunctival congestion or icterus. Patient has moist mucous membranes. NECK: Supple. Trachea midline. CHEST/LUNGS: Clear to auscultated bilaterally, breathing nonlabored. No wheezes crackles or rhonchi. HEART/CARDIOVASCULAR: Regular in rate and rhythm. S1 and S2 positive. ABDOMEN: Abdomen is soft, nontender. Patient has normal bowel sounds. SKIN: There is no rash. Warm and dry. NEURO: Moves all extremity, RLE might be little weaker. Not oriented to time and place, doesn't follow commands MUSCULOSKELETAL: No joint effusion or tenderness. EXTRIMITY: No edema, no cyanosis or clubbing. PSYCH: cooperative. - Constitutional Vitals: Temp Pulse Resp BP Pulse Ox 97.5 F L 62 18 124/74 100 11/24/16 08:00 11/24/16 08:00 11/24/16 08:00 11/24/16 08:00 11/24/16 08:00 Plan Activity: up only with assistance (total care) Diet: other (pureed diet) Special Instructions: physical therapy, occupational therapy, home health RN, other (speech therapy) Additional Instructions: Needs supervision and total care Follow up with: PRIMARY CARE, [Primary Care Provider] - 3-5 Days Forms: Accompanied Note Prescriptions: AtorvaSTATin [Lipitor] 40 mg PO QHS #30 tablet Aspirin [Aspirin TAB] 325 mg PO QDAY #30 tablet Famotidine [Pepcid] 20 mg PO QDAY #30 tablet risperiDONE [RisperDAL] 0.25 mg PO BID #60 tablet
== END 2016-11-24 17:45 | disposition home health service (06) | DRG 62 ==
LOC: ED 18:48 → CC1 23:20 → 4A 11-19 12:22 → CC2 11-23 17:14
PROVIDERS: ADMIT Internal Medicine; ATTEND Internal Medicine
DX: I63.9 Cerebral infarction, unspecified (principal); G81.91 Hemiplegia, unspecified affecting right dominant side; F03.90 Unspecified dementia, unspecified severity, without behavioral disturbance, psychotic disturbance, mood disturbance, and anxiety; R09.02 Hypoxemia; R41.0 Disorientation, unspecified; E78.5 Hyperlipidemia, unspecified
CPT/HCPCS: 36415; 70450; 70496; 70498; 70551; 80048; 80061; 80320; 82140; 82962; 84146; 84484; 85014; 85018; 85025; 85049; 85610; 85670; 85730; 93005; 93010; 93306; 96365; 96375; A9270-GY; G0480; G8996-GN; G8997-GN; J1650; J2060; J2405; J2997; J7030; Q9967